=== PATIENT | female | born 1995 | race Caucasian/White ===

== ENCOUNTER 2023-08-14 22:33 | Emergency (ER) | payer SELFPAY ==
--- NOTE | 2023-08-14 22:51 | ED.GENADULT ---
HPI - General Adult General Chief complaint: Behavioral Concerns Stated complaint: homeless female found by PD. Says she is sick Time Seen by Provider: 08/14/23 22:41 Source: patient and EMS Mode of arrival: EMS Limitations: other (Uncooperative) History of Present Illness HPI narrative: Patient comes to the emergency room by ambulance. Per EMS, patient was found by police department wrapped up in a blanket curled up in a corner in the street. Patient admits that she told PD and EMS that she needed to come to the hospital because she was feeling sick. However, when I spoke with the patient, patient states that she is not feeling sick, but she feels very sleepy and it is cold outside and would like to sleep in a warm place tonight. Patient admits to polysubstance abuse. Patient denies SI or HI. Patient denies any complaints other than feeling very sleepy and wanting to sleep. Related Data Allergies Allergy/AdvReac Type Severity Reaction Status Date / Time No Known Allergies Allergy Verified 08/14/23 22:50 Review of Systems Review of Systems: Constitutional : No Weight loss, No Fever, No Chills, No Night Sweats, No Fatigue, No Malaise, somnolent ENT/Mouth : No Hearing loss, No Ear Pain, No Nasal Congestion, No Sinus Pain, No Hoarseness, No sore throat, No Rhinorrhea, No Swallowing Difficulty Eyes: No Eye Pain, No Swelling, No Redness, No Foreign Body, No Discharge, No Vision Changes Cardiovascular : No Chest Pain, No SOB, No Dyspnea on Exertion, No Orthopnea, No Edema, No Palpitations Respiratory : No Cough, No Sputum, No Wheezing, No Smoke Exposure, No Dyspnea Gastrointestinal : No Nausea, No Vomiting, No Diarrhea, No Constipation, No abdominal Pain, No Hematochezia, No Melena Genitourinary : no irregular bleeding, No Dysuria, No Urinary Frequency, No Hematuria, No Urinary Incontinence, No Urgency, No Flank Pain, No Urinary Flow Changes, No Hesitancy Musculoskeletal : No joint pain, No Myalgias, No Joint Swelling Skin : No Skin Lesions, No rash Neuro : No Weakness, No Numbness, No Paresthesias, No Loss of Consciousness, No Dizziness, No Headache Psych : No Anxiety/Panic, No Depression, No SI/HI/AH/VH, No Social Issues, Heme/Lymph: No Bruising, No Bleeding,No Lymphadenopathy Endocrine : No Polyuria, No Polydipsia, feeling cold PMFSH Past Medical History Onset Date is defined in the Problem List Problems that require an onset date and time if occurred within 24 hrs of arrival to the ED Aortic Dissection and Rupture; Neurologic impairment; Cardiopulmonary Arrest; Endotracheal Intubation; Insertion or Replacement of Mechanical Circulatory Assist Device Medical History Polysubstance abuse Physical Exam ED Vital Signs: Vital Signs - 24 hr 08/14/23 23:40 Temperature 98.2 F Pulse Rate 82 Respiratory Rate 16 Blood Pressure 130/73 Pulse Oximetry 100 Oxygen Delivery Method Room Air BMI result Body Mass Index 23.3 Const Other: Appearance: Alert. Oriented X3. Eyes: Pupils equal, round and reactive to light. ENT: Pharynx normal. Neck: Normal inspection. Neck supple. No lymph nodes noted. No crepitus CVS: Normal heart rate and rhythm. Pulses normal. Normal S1 and S2 Respiratory: No respiratory distress. Breath sounds normal. No Wheezing. No rales Abdomen: Soft and nontender. No rigidity. No distention. Skin: Skin warm and dry. Normal skin color. Normal skin turgor. Extremities: No lower extremity edema. No Lacerations. No Rash Neuro: Oriented X 3. No motor deficit. No sensory deficit. Moving all extremities. No slurred speech. CN 2 through 12 grossly intact Psych: calm, uncooperative, refusing to talk to the patient's nurse Course Course Course Narrative: -patient refusing lab work Medical Decision Making Medical Decision Making [facility] Narrative: -patient refused treatment, refused vitals, patient being belligerent and aggressive with her nurse -patient alert and oriented, not SI or HI, patient ready for discharge Differential Diagnosis Differential Diagnoses: The differential diagnosis associated with the presentation includes (Polysubstance abuse, homeless) Discharge Plan Discharge Clinical Impression: Polysubstance abuse Patient Disposition: Home, Self-Care Instructions: Polysubstance Abuse (ED) Additional Instructions: Please follow-up with your primary care physician tomorrow. If you have any worsening or new symptoms, please return to the emergency room or call 911
[2023-08-14 23:06] VITALS: BMI 23.3
--- NOTE | 2023-08-14 23:11 | PC.NURSE ---
pt refusing labs/vitals to Dr. Bill. Dr. Bill aware. pt changed over by security belongings in decon. pt denies si/hi. sleeping in stretcher resp even and unlabored.
[2023-08-14 23:40] VITALS: BP 130/73; PULSE 82; RESP 16; TEMP 36.8; O2SAT 100
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
[2023-08-15 05:43] VITALS: BP 117/64; PULSE 100; RESP 16; TEMP 37.1; O2SAT 97
== END 2023-08-15 06:39 | disposition home or self-care (01) ==
PROVIDERS: Emergency Provider Emergency Medicine
DX: F19.10 Other psychoactive substance abuse, uncomplicated (principal)
CPT/HCPCS: 99282

== ENCOUNTER 2023-08-15 10:39 | Emergency (ER) | payer SELFPAY ==
--- NOTE | 2023-08-15 10:47 | ED.GENADULT ---
HPI - General Adult General Chief complaint: ETOH/Substance Use Stated complaint: DETOXING FROM HEROIN,NOT COOPERATIVE PER EMS Time Seen by Provider: 08/15/23 10:46 Source: patient Mode of arrival: EMS Limitations: other History of Present Illness HPI narrative: Patient is a 28 yr old female with a past medical history of polysubstance abuse presenting in withdrawal from heroin. Of note, patient presented to the ER last night, refused treatment and was belligerent and aggressive with nursing staff. Today is refusing to participate in history, review of systems and physical exam. When I ask her if she is SI or HI she nods her head no. Only doing head nods. Nods her head no when I ask her if she has any pain. Related Data Previous Rx's Medication Instructions Recorded naloxone 4 mg/actuation nasal 4 mg intranasal Q2M PRN opioid 08/15/23 spray (Narcan) overdose #2 ea Allergies Allergy/AdvReac Type Severity Reaction Status Date / Time No Known Allergies Allergy Verified 08/14/23 22:50 Review of Systems Review of Systems: Constitutional : No Weight loss, No Fever, No Chills, No Fatigue, No Malaise ENT/Mouth : No sore throat, No Rhinorrhea Eyes: No Eye Pain, No Swelling, No Redness Cardiovascular : No Chest Pain, No SOB, No Dyspnea on Exertion, No Orthopnea, No Edema, No Palpitations Respiratory : No Cough, No Sputum, No Wheezing Gastrointestinal : No Nausea, No Vomiting, No Diarrhea, No Constipation, No abdominal Pain, No Hematochezia, No Melena Genitourinary : No Dysuria, No Urinary Frequency, No Hematuria, Musculoskeletal : No joint pain, No Myalgias, No Joint Swelling Skin : No Skin Lesions, No rash Neuro : No Weakness, No Numbness, No Dizziness, No Headache Psych : No Anxiety/Panic, No Depression Heme/Lymph: No Bruising, No Bleeding,No Lymphadenopathy Endocrine : No Polyuria, No Polydipsia All other systems reviewed and are negative Yes all other systems are reviewed and are negative PMFSH Past Medical History Onset Date is defined in the Problem List Problems that require an onset date and time if occurred within 24 hrs of arrival to the ED Aortic Dissection and Rupture; Neurologic impairment; Cardiopulmonary Arrest; Endotracheal Intubation; Insertion or Replacement of Mechanical Circulatory Assist Device Medical History Polysubstance abuse Social History Social History Advance Directives: No Advance Directives Information Provided: No Physical Exam ED Vital Signs: Vital Signs - 24 hr 08/15/23 10:50 Temperature 98.1 F Pulse Rate 58 Respiratory Rate 16 Blood Pressure 102/60 Pulse Oximetry 99 Oxygen Delivery Method Room Air BMI result Body Mass Index 19.7 vss Appearance: Alert.? Oriented X3.? No acute distress.? Head: Normocephalic, atraumatic, no step-offs or deformities Eyes: Pupils equal, round and reactive to light.? CVS: Normal heart rate and rhythm.? Pulses normal.? Respiratory: No respiratory distress.? Breath sounds normal.? Abdomen: Soft and nontender.? Skin: Skin warm and dry.? Normal skin color.? Normal skin turgor.? Extremities: No lower extremity edema.? No calf ttp. 5/5 strength to bilateral upper and lower extremities Back: No midline tenderness, no C-spine tenderness, full range of motion, no CVA tenderness bilaterally Neuro: Oriented X 3.? No motor deficit.? No sensory deficit. CN 2-12 intact Course Reevaluation(s) Reevaluation #1: CBC unremarkable. Chemistry with low potassium 3.1 will give oral at this time. Patient was initially seen by recovery who recommended 20 of methadone and then recommended an additional 20. Patient is slightly anxious will give Ativan at this time. Recovery was able to successfully place patient at [facility]. Patient agreeable to go when excited to go. Not suicidal or homicidal. No medical complaints. Educated patient on diagnosis and treatment plan, answered all question, patient verbalizes understanding. At this time patient will be discharged home, advised to return with new or worsening symptoms. Educated on worrisome signs and symptoms and when to return. At this time I feel comfortable discharge home. Time: 14:19 Medications Administered Discontinued Medications Generic Name Dose Route Start Last Admin Trade Name Rojas PRN Reason Stop Dose Admin Lorazepam 2 mg 08/15/23 11:35 08/15/23 12:26 Lorazepam 1 Mg Tablet PO 08/15/23 11:36 Not Given ONCE ONE Methadone HCl 20 mg 08/15/23 12:05 08/15/23 12:25 Methadone Hcl 20 Mg/2 Ml Oral.Conc PO 08/15/23 12:06 20 mg ONCE ONE Administration Medical Decision Making Medical Decision Making [facility] Narrative: 28 year old female presents w/ w/ drawl from heroin. Unwilling to answer any questions. Per nursing patient attempted to get into a detox program, however they were concerned she was overdosing, no Narcan was administered she arrived with unlabored respirations saturating well on room air, nodding to questions. Patient denies substance an ethanol to nursing. Denies any pain. Not suicidal or homicide Physical examination benign patient appears comfortable. No acute distress. VSS Likely opiate withdrawal. Versus polysubstance abuse. No reported trauma unlikely traumatic injury to head, neck, chest, abdomen or pelvis. Unlikely metabolic derangements. Patient was just seen here yesterday where she was evaluated with an unremarkable workup. Plan at this time drug screen, care vs resovery Differential Diagnosis Differential Diagnoses: The differential diagnosis associated with the presentation includes Likely opiate withdrawal. Versus polysubstance abuse. No reported trauma unlikely traumatic injury to head, neck, chest, abdomen or pelvis. Unlikely metabolic derangements. Patient was just seen here yesterday where she was evaluated with an unremarkable workup. Admission/Observation Consideration of admission/observation: Escalation of care including admission/observation considered Consult Healthcare Provider Management of the patient was discussed with: Behavioral Health Provider Lab Data [facility] Lab Attestation statement: I reviewed the patient's lab results. 08/15/23 12:27 08/15/23 12:27 Labs: Lab Results 08/15/23 Range/Units 12:27 WBC 9.2 (4.8-10.8) X10*3/uL RBC 4.78 (4.20-5.50) X10*6/uL Hgb 13.0 (12.0-16.0) g/dl Hct 38.4 (37.0-47.0) % MCV 80.3 (80.0-98.0) fL MCH 27.2 (27.0-33.0) pg MCHC 33.9 (31.0-35.0) g/dl RDW 14.4 (11.0-16.0) % Plt Count 340 (160-400) X10*3/uL MPV 10.1 (9.4-12.3) fL Immature Gran % (Auto) 0.3 (0.0-0.4) % Neut % (Auto) 71.3 (45-73) % Lymph % (Auto) 20.9 (20-40) % [place] % (Auto) 7.3 (2-11) % Eos % (Auto) 0.0 (0-4) % Baso % (Auto) 0.2 (0-2) % Lymph # (Auto) 1.9 (1.2-4.9) X10*3/uL [place] # (Auto) 0.7 (0.1-1.2) X10*3/uL Eos # (Auto) 0.0 (0.0-0.4) X10*3/uL Baso # (Auto) 0.0 (0.0-0.2) X10*3/uL Abs Immat Gran (auto) 0.03 (0.00-0.03) X10*3/uL Absolute Neuts (auto) 6.6 (2.0-8.3) x10*3/uL Absolute Nucleated RBC 0.000 (0.0-0.012) X10*3/uL Nucleated RBC % (auto) 0.0 (0.0-0.2) /100WBC Sodium 139 (135-145) mmol/L Potassium 3.1 L (3.3-5.1) mmol/L Chloride 100 (96-108) mmol/L Carbon Dioxide 25 (22-29) mmol/L Anion Gap 17 (12-20) BUN 20 H (9-16) mg/dL Creatinine 0.72 (0.5-1.4) mg/dL Estim Creat Clear Calc 91.7 Estimated GFR > 60 Random Glucose 113 (60-115) mg/dL Calcium 9.9 (8.4-10.2) mg/dL Magnesium 2.6 (1.6-2.6) mg/dL Total Bilirubin 0.4 (0.0-1.0) mg/dL AST 29 (5-31) U/L ALT 17 (0-31) U/L Alkaline Phosphatase 75 (39-117) U/L Total Protein 9.0 H (6.5-8.0) g/dL Albumin 4.3 (3.5-5.0) g/dL Beta HCG, Quant < 2 mIU/mL Independent Historian Clinical information obtained from an independent historian. History obtained from or confirmed by: EMS External Record Review External record reviewed: Inpatient record, Outpatient record and Primary care record Social Determinants Patient?s care significantly limited by Social Determinants of Health including: Other Social Determinant of Health Critical Care Time Critical Care Time Critical Care Time: Yes Total Critical Care Time: 35 Attestation: I attest to this time spent taking care of the patient, obtaining history, physical, reviewing labs, imaging, speaking to recovery Discharge Plan Discharge Clinical Impression: Opiate misuse Patient Disposition: Xfer Other Transfer Details: [facility] Instructions: Opioid Withdrawal (ED), Opioid Use Disorder (ED) Additional Instructions: Take your medications as prescribed. If you were prescribed antibiotics today, it is important that you take your medication to their entirety, do not skip any doses, do not finish them early. Follow-up with your primary care provider this week. Return to the emergency department with new or worsening symptoms. Such as fevers, chills, chest pain, shortness of breath, nausea, vomiting, dizziness, headache, vision changes, lethargy In case of emergency call 911 Prescriptions: New naloxone [Narcan] 4 mg/actuation spray,non-aerosol 4 mg intranasal Q2M PRN (Reason: opioid overdose) Qty: 2 0RF Rx Instructions: spray 1 dose into ONE nostril; alternate nostrils w each dose until help arrives Referrals: Physician,Unknown J [Primary Care Provider] - 2 days Stand Alone Forms: Work/School Release
[2023-08-15 10:50] VITALS: BP 101/62; BP 102/60; PULSE 58; PULSE 78; RESP 16; TEMP 36.7; O2SAT 98; O2SAT 99; BMI 19.7
--- NOTE | 2023-08-15 10:54 | PC.NURSE ---
upon arrival, patient changed into hospital attire with security at bedside. belongings placed in decon - only one bag containing her clothing. patient states the other belongings (backpack) she was discharged with this morning are still at [facility]. patient answering questions minimally. states she is still interested in detox at this time, easily abusable to verbal stimuli. call ronquillo within reach.
[2023-08-15] MEDS: methADONE HCl 20 MG/2 ML ORAL.CONC PO ×2 (12:25→14:40)
--- NOTE | 2023-08-15 12:26 | PC.NURSE ---
met with recovery team, medicated per the MAR. obtaining labs at this time.
[2023-08-15 12:31] LABS: MANUAL DIFF FLAG NO
[2023-08-15 12:38] LABS: Basophils Percent Auto 0.2 % (0-2); Hematocrit 38.4 % (37.0-47.0); Imm Gran Abs Auto 0.03 X10*3/uL (0.00-0.03); Imm Gran Pct Auto 0.3 % (0.0-0.4); Lymphocytes Absolute Auto 1.9 X10*3/uL (1.2-4.9); Lymphocytes Percent Auto 20.9 % (20-40); Mean Corpuscular HGB Conc 33.9 g/dl (31.0-35.0); Mean Corpuscular Hemoglobin 27.2 pg (27.0-33.0); Mean Corpuscular Volume 80.3 fL (80.0-98.0); Mean Platelet Volume 10.1 fL (9.4-12.3); Monocytes Absolute Auto 0.7 X10*3/uL (0.1-1.2); Monocytes Percent Auto 7.3 % (2-11); Neutrophils Absolute Auto 6.6 x10*3/uL (2.0-8.3); Neutrophils Percent Auto 71.3 % (45-73); Platelet Count 340 X10*3/uL (160-400); Red Blood Count 4.78 X10*6/uL (4.20-5.50); Red Cell Distribution Width 14.4 % (11.0-16.0); White Blood Count 9.2 X10*3/uL (4.8-10.8)
[2023-08-15 12:57] LABS: Alanine Aminotransferase 17 U/L (0-31); Albumin Level 4.3 g/dL (3.5-5.0); Alkaline Phosphatase 75 U/L (39-117); Anion Gap 17 (12-20); Aspartate Amino Transferase 29 U/L (5-31); Bilirubin Total 0.4 mg/dL (0.0-1.0); Blood Urea Nitrogen 20 mg/dL (9-16); Calcium 9.9 mg/dL (8.4-10.2); Carbon Dioxide 25 mmol/L (22-29); Chloride 100 mmol/L (96-108); Creatinine Clr Calc Pharmacy 91.7; Estimated Glomerular Filt Rate > 60; Glucose Random 113 mg/dL (60-115); Magnesium 2.6 mg/dL (1.6-2.6); Potassium 3.1 mmol/L (3.3-5.1); Sodium 139 mmol/L (135-145)
[2023-08-15 13:05] LABS: HCG Quantitative < 2 mIU/mL
--- NOTE | 2023-08-15 13:51 | MHC.RECOVRN ---
Met with pt in ED6 after pt requesting ATS. Pt had presented to the ED after being discharged this morning and returning after EMS was called for ?overdose, no Narcan was administered. Pt laying in bed, eyes closed, wakes to voice, difficult to engage in conversation, guarded. Pt reports heroin/fentanyl use, 10 bundles daily, IV. Pt reports current withdrawal symptoms including diaphoresis, upset stomach, body aches. Pt reports hx methadone, had been on 190 mg, unknown which OTP. Pt is interested in ATS, is agreeable to any facility.
--- NOTE | 2023-08-15 14:25 | MHC.RECOVRN ---
Pt does not currently have [employer] insurance which creates a barrier to ATS. Discussed other options with pt, pt would like to continue with methadone and is interested in going to a penitentiary. Placement has been secured at [facility], pt to be transported via Lyft. [facility] will assist pt with health insurance and connection to [facility]. Pt continues to experience withdrawal including hot/cold sweats and loose stool. Plan to administer additional 20 mg methadone.
[2023-08-15] MEDS: Potassium Chloride ER 20 MEQ TAB.ER.PRT PO (14:40)
== END 2023-08-15 16:01 | disposition other institution (70) ==
PROVIDERS: Physician Assistant; Emergency Provider Emergency Medicine
DX: F11.23 Opioid dependence with withdrawal (principal); Z79.899 Other long term (current) drug therapy
CPT/HCPCS: 36415; 80053; 83735; 84702; 85025; 99283; 99284

== ENCOUNTER 2023-11-28 23:13 | Emergency (ER) | payer OTHER, SELFPAY ==
--- NOTE | 2023-11-28 23:29 | ED_ITS ---
HPI - General Adult General Chief complaint: General Medical Stated complaint: drug use Time Seen by Provider: 11/28/23 23:28 History of Present Illness HPI narrative: The patient is a 28-year-old female with a history of substance use problems. Apparently she seemed quite upset this evening and an ambulance was called. She was in the parking lot of a dollar store. She seemed agitated. As far as I can tell I believe a bystander called 911. Police arrived and were concerned that she seemed hyperverbal. Please convinced her to come to the emergency room for evaluation. She says she had not wanted to come to the hospital. She says that she has had trouble sleeping recently. She says she was recently discharged from a hospital where she was treated under a section 35. She says that she has not done anything to harm herself. She says that she has no plans to harm herself. She says that she would like to be discharged with a plan to go to a friend's house where she can get some sleep. The patient denies any thoughts of suicidality or self-harm or any plans to inj ure anyone else. Related Data Previous Rx's ?Medication ?Instructions ?Recorded naloxone 4 mg/actuation nasal 4 mg intranasal Q2M PRN opioid 08/15/23 spray (Narcan) overdose #2 ea Allergies Allergy/AdvReac Type Severity Reaction Status Date / Time No Known Allergies Allergy Verified 11/28/23 23:48 Review of Systems Review of Systems: Yes all other systems are reviewed and are negative [facility] Past Medical History Medical History Polysubstance abuse Social History Social History Advance Directives: No Advance Directives Information Provided: Yes Do you have a plan to hurt others: No Plan Physical Exam ED Vital Signs: Vital Signs - 24 hr 11/28/23 23:48 11/28/23 23:51 Temperature 98.1 F 98.1 F Pulse Rate 88 88 Respiratory Rate 16 16 Blood Pressure 109/71 109/71 Pulse Oximetry 100 100 Oxygen Delivery Method Room Air Room Air BMI result Body Mass Index 21.5 Const Other: The patient is an unkempt, somewhat chronically ill-appearing 28-year-old who was awake and alert. She was somewhat histrionic but could be engaged. She did not seem in obvious distress. HENMT Other: The patient has poor dentition. Mucous membranes are moist. The face is symmetrical. No signs of trauma. Eyes Other: Pupils are round equal, conjunctivae are clear, extraocular movements intact, no nystagmus. Neck Other: No JVD, moving her neck easily, no swelling. Resp Effort & Inspection: normal respiratory effort Auscultation: clear to auscultation bilaterally Cardio Rate: regular rate Rhythm: regular rhythm Heart sounds: S1 normal heart sound present and S2 normal heart sound present GI Other: Abdomen is flat and soft Skin Other: Skin is pale and dry. She had some scabs on her lower legs for which she requested some Band-Aids. Neuro Other: The patient was awake and alert. She had some mildly pressured speech. She seems oriented. Face is symmetrical. Eye movements are normal. Pupils are unremarkable. Speech is clear. She moves her extremities symmetrically. Her gait was steady. Extrem Other: No peripheral edema. Medical Decision Making Medical Decision Making MDM Narrative: The patient is a 28-year-old who has a history of significant substance use problems who was apparently behaving in his somewhat agitated manner in public. This prompted police to convince her to come to the hospital. She does not wish to be here. She denies any suicidality or homicidality. She denies having done anything to harm herself. She denies feeling ill. She admits to feeling agitated because she has not slept much recently. She says that if she is discharged she will walk about 10 minutes to a friend's house where she can get some sleep. She is requesting discharge. Vital signs are unremarkable. She seems steady on her feet. I do not feel there are grounds to hold her against her will. She was discharged. Discharge Plan Discharge Clinical Impression: Difficulty sleeping Patient Disposition: Home, Self-Care Additional Instructions: Please go to your friend's house to try to get some rest tonight. Please try to follow up soon with your new regular doctor at the [facility]. Please try to avoid using any drugs which might be dangerous. Return to the emergency room if you feel significantly worse. Prescriptions: No Action naloxone [Narcan] 4 mg/actuation spray,non-aerosol 4 mg intranasal Q2M PRN (Reason: opioid overdose) Qty: 2 0RF Rx Instructions: spray 1 dose into ONE nostril; alternate nostrils w each dose until help arrives Referrals: [facility] [Provider Group] (Recently treated under a section 35) Interventions: ED Discharge Assessment Last Done: 11/28/23 23:51 Discharge Date/Time: 11/28/23 23:54 Print Language: Upper Sorbian
[2023-11-28 23:48] VITALS: BP 109/71; PULSE 88; RESP 16; TEMP 36.7; O2SAT 100; BMI 21.5
[2023-11-28 23:51] VITALS: BP 109/71; PULSE 88; RESP 16; TEMP 36.7; O2SAT 100
== END 2023-11-28 23:54 | disposition home or self-care (01) ==
PROVIDERS: Emergency Provider Emergency Medicine
DX: G47.00 Insomnia, unspecified (principal)
CPT/HCPCS: 99282

== ENCOUNTER 2024-03-05 00:45 | Emergency (ER) | payer SELFPAY ==
[2024-03-05 01:00] VITALS: BP 102/55; PULSE 79; RESP 16; O2SAT 96
[2024-03-05 01:03] VITALS: BP 142/100; PULSE 85; O2SAT 98; BMI 19.5
--- NOTE | 2024-03-05 01:23 | ED_ITS ---
HPI - General Adult General Chief complaint: ETOH/Substance Use Stated complaint: seeking detox Time Seen by Provider: 03/05/24 01:06 Source: patient and EMS Mode of arrival: EMS Limitations: no limitations History of Present Illness ED Provider: Dr. Engel HPI narrative: Patient brought in by EMS for withdrawal from heroine, fentanyl, and cocaine. She is homeless. She last used 12 hours ago Onset (ago): hour(s) Related Data Previous Rx's ?Medication ?Instructions ?Recorded naloxone 4 mg/actuation nasal 4 mg intranasal Q2M PRN opioid 08/15/23 spray (Narcan) overdose #2 ea Allergies Allergy/AdvReac Type Severity Reaction Status Date / Time No Known Allergies Allergy Verified 03/05/24 01:06 Review of Systems Review of Systems: Yes all other systems are reviewed and are negative Neurologic: Denies Sensory deficit (Neuro) PMFSH Past Medical History Medical History Polysubstance abuse Social History Social History Advance Directives: No Advance Directives Information Provided: Yes Do you have a plan to hurt others: No Plan Patient : No Physical Exam ED Vital Signs: Vital Signs - 24 hr 03/05/24 01:00 03/05/24 05:32 Temperature 98.4 F Pulse Rate 79 80 Respiratory Rate 16 16 Blood Pressure 102/55 L 107/60 Pulse Oximetry 96 97 Oxygen Delivery Method Room Air Room Air BMI result Body Mass Index 19.5 Const Other: female unkept looking older than stated age Nutritional Appearance: malnourished Orientation/consciousness: oriented to person and patient oriented x3 Limitations: no limitations HENMT Head: Yes normal to inspection Ears: external ears normal General nose exam: Normal external nose present Mouth: Normal oral and palatal mucosa present and oropharynx normal Throat: Yes posterior oropharynx normal Eyes General: appearance normal, both eyes and all related structures Neck Neck: Yes normal visual inspection Chest Chest palpation & inspection: normal inspection of the chest Resp Auscultation: clear to auscultation bilaterally Cardio Jugular venous distension: no JVD Rate: regular rate Rhythm: regular rhythm Heart sounds: S1 normal heart sound present and S2 normal heart sound present GI Inspection: Yes normal to inspection Palpation (GI): Soft to palpation, nontender and No hepatosplenomegaly present Auscultation: normal bowel sounds General: Yes no CVA tenderness Back/Spine/Pelvis Back: no CVA tenderness Skin Other: track henson and scarring Neuro General: oriented to person and patient oriented x3 Cranial nerves: Yes CN's II-XII intact bilaterally Motor exam (neuro): 5/5 motor strength present throughout Sensory Exam: No Sensory deficit (Neuro) Extrem General: Yes normal to inspection Psych Appearance: grossly normal Course Reevaluation(s) Reevaluation #1: Physician observation starting now as the patient needs time to see if she will improve while she is waiting to be evaluated by the care team Time: 06:23 Medications Administered Discontinued Medications Generic Name Dose Route Start Last Admin Trade Name Freq PRN Reason Stop Dose Admin Clonidine HCl 0.1 mg 03/05/24 01:24 03/05/24 01:35 Clonidine Hcl 0.1 Mg Tablet PO 03/05/24 01:25 0.1 mg ONCE ONE Administration Protocol Medical Decision Making Differential Diagnosis Differential Diagnoses: The differential diagnosis associated with the presentation includes (opiate dependency, polysubstance abuse) Admission/Observation Consideration of admission/observation: Escalation of care including admission/observation considered (upon arrival patient considered for admission) Independent Historian Clinical information obtained from an independent historian. History obtained from or confirmed by: EMS Discharge Plan Discharge Clinical Impression: Polysubstance abuse, Opiate dependence Patient Disposition: Still a Patient Prescriptions: No Action naloxone [Narcan] 4 mg/actuation spray,non-aerosol 4 mg intranasal Q2M PRN (Reason: opioid overdose) Qty: 2 0RF Rx Instructions: spray 1 dose into ONE nostril; alternate nostrils w each dose until help arrives Print Language: [place]
[2024-03-05] MEDS: cloNIDine HCL 0.1 MG TABLET PO (01:35)
--- NOTE | 2024-03-05 03:49 | PC.NURSE ---
delay in labs due to to multiple attempts to draw
--- NOTE | 2024-03-05 04:58 | MHC.EDTECH ---
Difficult draw, Multiple techs tried unable to succeed. RN and DR duff
[2024-03-05 05:32] VITALS: BP 107/60; PULSE 80; RESP 16; TEMP 36.9; O2SAT 97
[2024-03-05 08:09] LABS: MANUAL DIFF FLAG NO
[2024-03-05 08:10] LABS: Basophils Percent Auto 0.2 % (0-2); Eosinophils Percent Auto 0.7 % (0-4); Hematocrit 32.1 % (37.0-47.0); Lymphocytes Absolute Auto 1.3 X10*3/uL (1.2-4.9); Lymphocytes Percent Auto 29.4 % (20-40); Mean Corpuscular HGB Conc 34.3 g/dl (31.0-35.0); Mean Corpuscular Volume 81.7 fL (80.0-98.0); Mean Platelet Volume 10.4 fL (9.4-12.3); Monocytes Absolute Auto 0.5 X10*3/uL (0.1-1.2); Monocytes Percent Auto 10.2 % (2-11); Neutrophils Absolute Auto 2.7 x10*3/uL (2.0-8.3); Neutrophils Percent Auto 59.5 % (45-73); Platelet Count 171 X10*3/uL (160-400); Red Blood Count 3.93 X10*6/uL (4.20-5.50); Red Cell Distribution Width 13.2 % (11.0-16.0); White Blood Count 4.5 X10*3/uL (4.8-10.8)
[2024-03-05 08:30] LABS: Anion Gap 9 (12-20); Blood Urea Nitrogen 10 mg/dL (9-16); Calcium 9.1 mg/dL (8.4-10.2); Carbon Dioxide 27 mmol/L (22-29); Chloride 105 mmol/L (96-108); Creatinine Clr Calc Pharmacy 107.5; Estimated Glomerular Filt Rate > 60; Glucose Random 101 mg/dL (60-115); Potassium 2.9 mmol/L (3.3-5.1); Sodium 138 mmol/L (135-145)
[2024-03-05] MEDS: Potassium Chloride ER 20 MEQ TAB.ER.PRT PO (08:52)
[2024-03-05] MEDS: Ondansetron ODT 4 MG TAB.RAPDIS TRANSLINGU (08:53)
--- NOTE | 2024-03-05 09:14 | MHC.RECOVRN ---
Met with pt in [id number] after consult placed to CARE Team for withdrawal. Pt laying in bed, awake, alert, easily engages in conversation, appears uncomfortable. Pt reports heroin/fentanyl use, 2 bundles daily, IV, as well as cocaine, INH, 1 gram daily. Pt reports she had been on methadone, unsure of how long ago, 120 mg. Pt would like to restart methadone and be connected to [facility]. Pt currently reporting withdrawal symptoms including restlessness, nausea, feeling hot/cold, diaphoresis, has dilated pupils. Pt is not currently interested in other recovery supports/resources. Denies other questions for t/w. Discussed with provider, plan to administer 40 mg methadone. N referral sent.
[2024-03-05] MEDS: methADONE HCl 20 MG/2 ML ORAL.CONC 40 MG PO (09:23)
[2024-03-05 09:42] VITALS: BP 91/54; PULSE 66; RESP 14; TEMP 37.2; O2SAT 100
== END 2024-03-05 09:44 | disposition home or self-care (01) ==
PROVIDERS: Emergency Provider Emergency Medicine
DX: F19.10 Other psychoactive substance abuse, uncomplicated (principal); F11.20 Opioid dependence, uncomplicated; Z59.00 Homelessness unspecified
CPT/HCPCS: 36415; 80048; 85025; 99284

== ENCOUNTER 2025-02-23 13:17 | Emergency (ER) | payer SELFPAY ==
--- NOTE | ~2025-02-23 | XR_ITS ---
EXAMINATION: XR CHEST CLINICAL INFORMATION: overdose, given 12mg narcan COMPARISON: None available. TECHNIQUE: AP view of the chest was obtained. FINDINGS: Mild patient rotation to the right. Mildly elevated right hemidiaphragm. The cardiac, hilar, and mediastinal contours are normal. The lungs are clear bilaterally. No pneumothorax or effusion. No focal osseous or soft tissue abnormality. XR/XR chest 1V IMPRESSION: No active pulmonary disease. Electronically signed by: Gentry Taylor MD 02/23/2025 02:11 PM EDT
[2025-02-23 13:30] VITALS: BP 113/69; PULSE 63; RESP 14; TEMP 36.6; O2SAT 99; BMI 18.0
--- NOTE | 2025-02-23 13:30 | ECG_ITS ---
Test Reason : OD Blood Pressure : */* mmHG Vent. Rate : 66 BPM Atrial Rate : 66 BPM P-R Int : 178 ms QRS Dur : 82 ms QT Int : 412 ms P-R-T Axes : 73 88 68 degrees QTcB Int : 431 ms Normal sinus rhythm Normal ECG No previous ECGs available Referred By: Sarbjit Tracey Electronically Signed By: ROYER MALDONADO MD
--- NOTE | 2025-02-23 13:38 | ED.OVERDOSE ---
HPI - Overdose General Chief Complaint: Overdose Stated Complaint: OD,12 MG NARCAN PER EMS Time Seen by Provider: 02/23/25 13:23 Source: EMS and RN notes reviewed Mode of arrival: EMS Limitations: no limitations History of Present Illness ED Provider: Alexy Schaffer PA-C HPI Narrative: 29-year-old female with medical history of opiate use disorder, presents to the ED today by EMS after overdose. Patient is somewhat reluctant to talk about her history. States she does not know what happened today. EMS states patient was found down was given 12 mg Narcan intranasally prior to arrival. Patient states she uses approximately a bundle of IV heroin a day, this is an accidental overdose. Patient states she has no physical complaints, does not want consult with care team for help with addiction at this time. Related Data Previous Rx's ?Medication ?Instructions ?Recorded naloxone 4 mg/actuation nasal 4 mg intranasal Q2M PRN opioid 08/15/23 spray (Narcan) overdose #2 ea Allergies Allergy/AdvReac Type Severity Reaction Status Date / Time diphenhydramine Allergy Anaphylaxis Verified 02/23/25 13:31 Review of Systems Review of Systems: CONST: Negative for fever, body aches and chills. HENT: Negative for neck pain/stiffness, headache, congestion, sore throat, swelling. EYES: Negative for discharge/pain or vision changes. RESP: Negative for cough/hemoptysis and shortness of breath. CV: Negative chest pain, difficulty breathing, palpitations. ABD: Negative pain, nausea, vomiting. : Negative increase frequency, dysuria, blood in urine or stool. MUSC: Negative for muscle aches, edema. SKIN: Negative rash, lesions/sores. NEURO: Negative headache, dizziness, weakness. Yes all other systems are reviewed and are negative [facility] Past Medical History Attestation statement: The following information was validated with the patient. Source: old records reviewed and nursing notes reviewed Medical History Polysubstance abuse Social History Social History Unable to assess alcohol history related to: Refusing to respond Use of substances other than those prescribed or required for medical reasons: Yes Substance Use Type: Other and Tranquilizers Substance Use Type Other:: fentanyl Advance Directives: No Advance Directives Information Provided: No Do you have a plan to hurt others: No Plan Physical Exam Vital Signs: Vital Signs: Last Vital Signs Temp 98 F 02/23/25 13:30 Pulse 78 02/23/25 14:22 Resp 14 02/23/25 13:30 BP 90/40 L 02/23/25 15:42 Pulse Ox 99 02/23/25 13:30 O2 Del Method Room Air 02/23/25 15:42 BMI result Body Mass Index 18.0 GENERAL APPEARANCE: ?AxOx4, lethargic appearing, but responds to vocal commands HEENT: ?NC, AT. MMM. EOMI, clear conjunctiva, oropharynx clear. NECK: ?Supple without lymphadenopathy.? No stiffness or restricted ROM. HEART:?normal rate and regular rhythm, normal S1/S1, no m/r/g LUNGS:? CTAB, moving air well. No crackles or wheezes are heard. ABDOMEN: ?Soft, nontender, nondistended with good bowel sounds heard. BACK: No CVAT, no obvious deformity. EXTREMITIES: ?Without cyanosis, clubbing or edema. NEUROLOGICAL: ?Grossly nonfocal. Alert and oriented, moving all 4 extremities. Skin: ?Warm and dry without any rash. Medications Administered Discontinued Medications Generic Name Dose Route Start Last Admin Trade Name Esaq PRN Reason Stop Dose Admin Lactated Ringer's 1,000 mls @ 999 mls/hr 02/23/25 13:30 02/23/25 17:00 Lr IV 02/23/25 14:30 Infused .Q1H1M ONE Infusion Ondansetron HCl 4 mg 02/23/25 16:43 02/23/25 17:17 Ondansetron Hcl 4 Mg/2 Ml Vial IVPUSH 02/23/25 16:44 Not Given ONCE ONE Ondansetron HCl 4 mg 02/23/25 16:58 02/23/25 17:02 Ondansetron Odt 4 Mg Tab.Rapdis TRANSLINGU 02/23/25 16:59 4 mg ONCE ONE Administration Medical Decision Making Medical Decision Making MDM Narrative: 29-year-old female with medical history of opiate use disorder, presents to the ED today by EMS after overdose. Patient is somewhat reluctant to talk about her history. States she does not know what happened today. EMS states patient was found down was given 12 mg Narcan intranasally prior to arrival. Patient states she uses approximately a bundle of heroin a day, this is an accidental overdose. Patient states she has no physical complaints, does not want consult with care team for help with addiction at this time. VSS, BP 113/69, pulse rate 63, respiratory rate 14, O2 saturation 99% on room air. Obtaining labs, UA, SHAFFER, and chest x-ray for evaluation of pulmonary edema due to 12 mg nasal Narcan. EKG reveals normal sinus rhythm, no ST elevation/depression, T-wave abnormalities. Course 14:32- patient refusing labs. CXR without pulmonary edema or acute cardiopulmonary processes. Patient does not want consult with CARE team. We will observe patient and department and plan for later discharge. 18:15- per nursing, patient just ripped out IV, states ?I want to get out of here , patient with nausea, was given sublingual Zofran, patient is still with episode of emesis. Patient does not want any further medications, wants to leave, vital signs stable, BP 110/60, pulse rate 67 beats per minute, respiratory rate 15 breaths per minute, temp 98?, O2 saturation 98% on room air. Differential Diagnosis Differential Diagnoses: The differential diagnosis associated with the presentation includes Opiate intoxication Opioid withdrawal Dysrhythmia Pulmonary edema Admission/Observation Consideration of admission/observation: Escalation of care including admission/observation considered Lab Data MDM Lab Attestation statement: I reviewed the patient's lab results. Independent Interpretation I performed an independent interpretation of an: EKG and Plain X-Ray Interpretation: I independently interpreted the EKG I independently interpreted the chest x-ray without pulmonary edema, pulmonary effusion, cardiomegaly, or infiltrates, I agree with the radiologist's impression Radiology Impression Discussion of test interpretation with radiology: I have reviewed the radiologist's reading. Radiologist Impression: CXR FINDINGS: Mild patient rotation to the right. Mildly elevated right hemidiaphragm. The cardiac, hilar, and mediastinal contours are normal. The lungs are clear bilaterally. No pneumothorax or effusion. No focal osseous or soft tissue abnormality. XR/XR chest 1V IMPRESSION: No active pulmonary disease. Electronically signed by: Gentry Taylor MD 02/23/2025 02:11 PM EDT Dictated By: Gentry Taylor MD Signed By: <Electronically signed by Gentry Taylor MD in OV> 02/23/25 1417 External Record Review External record reviewed: Inpatient record, Office record and Outpatient record Chronic Conditions Patient?s care impacted by: Other (Opiate use disorder) Discharge Plan Discharge Clinical Impression: Drug overdose Patient Disposition: Home, Self-Care Instructions: Adult Overdose (ED) Additional Instructions: You were evaluated in the ED today due to drug overdose, and 12 mg of nasal Narcan given to you. You declined blood work today. Your EKG showed a normal sinus rhythm, without arrhythmia. Your chest x-ray did not show any evidence of pulmonary edema. Your vital signs were stable.Overdose You were seen in our Emergency Department for an overdose today. You received narcan in order to reverse the effects of overdose. Narcan only lasts about 45 min to 1 hour in the system. You may have been given narcan to take home with you today, please keep it near you if you are going to use again, so others can use it if needed.? The number one risk for fatal overdose is using alone? [employer] is a 18/02 hotline where you can be on the phone with someone while you use, and they can call for help if they suspect an overdose: [phone] Things to look out for when you leave include severe vomiting or diarrhea, headaches, muscle cramps, fever, coughing, chest pain, or if you feel so short of breath you cannot walk to the bathroom. Please seek care and return any time for worsening symptoms.? You may have been provided with safer injection?items, please take time to take care of YOU and your health. Use new supplies whenever possible to lessen the chances of infections and other illnesses.? If you need more supplies, please go [facility],? [address] [place], [place] you can call or text to coordinate delivery of safer supplies. If you decide you want to stop or cut down on how much you?re using, please call the numbers on the list provided to you or you can come to our outpatient Addiction Treatment office [facility] (M-F 9am-5p) [address], [address] [place], [place]. [phone] Prescriptions: No Action naloxone [Narcan] 4 mg/actuation spray,non-aerosol 4 mg intranasal Q2M PRN (Reason: opioid overdose) Qty: 2 0RF Rx Instructions: spray 1 dose into ONE nostril; alternate nostrils w each dose until help arrives Print Language: Unable To Collect
[2025-02-23] MEDS: Lactated Ringers 1,000 ML 999 ML IV (13:47)
--- NOTE | 2025-02-23 14:00 | MHC.EDTECH ---
pt refusing labwork. Provider Sarbjit duff.
[2025-02-23 14:22] VITALS: BP 92/49; PULSE 78
[2025-02-23 15:42] VITALS: BP 90/40
--- OUTSIDE RECORDS SUMMARY | 2025-02-23 16:14 | XMS_ITS | Clinical Summary ---
Author Organization [facility] it Address [address] [place] [address] Care Team Providers Care City Comptroller Name Role Phone Unavailable Primary Care Provider Unavailabl e Social History Tobacco Use Types Packs/Day Years Used Date Smoking Tobacco: Never Assessed Comments Unknown Sex and Gender Information Value Date Recorded Sex Assigned at Not on file Legal Sex Female 1:39 PM EDT Gender Identity Not on file Sexual Orientation Not on file Plan of Treatment Health Maintenance Due Date Last Done Comments DTaP,Tdap,and Td Vaccines (1 - Tdap) 2013 Hepatitis B Vaccines (1 of 3 - 19+ 3-dose series) 2013 Cervical Cancer Screening: P ap Smear 2015 HIV Screening 02/28/2024 Hepatitis C Screening 02/28/2024 Social Influencers of Health Screening 02/28/2024 COVID-19 Vaccine (1 - 2023-2 5 season) 2024 Depression Screening 07/29/2024 Influenza Vaccine (#1) 2025 HIB Vaccines Aged Out No longer eligi ble based on patient's age to complete this topic HPV Vaccines Aged Out No longer eligi ble based on patient's age to complete this topic Hepatitis A Vaccines Aged Out No long er eligible based on patient's age to complete this topic IPV Vaccines Aged Out No longer eligi ble based on patient's age to complete this topic MMR Vaccines Aged Out No longer eligi ble based on patient's age to complete this topic Meningococcal ACWY Vaccine Aged Out N o longer eligible based on patient's age to complete this topic Meningococcal B Vaccine Aged Out No l onger eligible based on patient's age to complete this topic Pneumococcal Vaccine: Pediat rics (0 to 5 Years) and At-Risk Patients (6 to 49 Years) Aged Out No longer eligible b ased on patient's age to complete this topic RSV Immunization Patients Un amanda 20 months Aged Out No longer eligible b ased on patient's age to complete this topic Varicella Vaccines Aged Out No longer eligible based on patient's age to complete this topic
--- NOTE | 2025-02-23 16:17 | PC.NURSE ---
belongings in [facility] 3
--- NOTE | 2025-02-23 17:00 | PC.NURSE ---
Pt ripped out IV and continues to rip off monitor. Pt vomited over the side of the bed multiple times despite having emesis bag. PA aware, awaiting PO zofran order.
[2025-02-23 17:45] VITALS: BP 110/60; PULSE 67; RESP 15; O2SAT 98
--- NOTE | 2025-02-23 18:14 | PC.NURSE ---
Addendum entered by Mayi Varma RN 02/23/25 18:18: Upon attempting to start another IV for hydration and nausea medication, pt refusing IV and states how long do I have to stay here, I want to leave . Pt aaox4, still reporting nausea, and vomited again over the side of the bed despite having a new emesis bag within reach. Pt informed of risks of leaving without completing medical treatment, pt still wishes to leave. PA aware. Original Note: Upon attempting to start another IV for hydration and nausea medication, pt refusing IV and states how long do I have to stay here, I want to leave . Pt aaox4, still reporting nausea. Pt informed of risks of leaving without completing medical treatment, pt still wishes to leave. PA aware.
[2025-02-23 18:43] VITALS: BP 110/60; PULSE 67; RESP 15; TEMP 36.6; O2SAT 98
== END 2025-02-23 18:43 | disposition home or self-care (01) ==
PROVIDERS: Emergency Provider Emergency Medicine
DX: T40.1X1A Poisoning by heroin, accidental (unintentional), initial encounter (principal); R40.4 Transient alteration of awareness; Y92.9 Unspecified place or not applicable; F19.10 Other psychoactive substance abuse, uncomplicated
CPT/HCPCS: 71045; 93005; 96360; 96361; 99284; 99285; J2405; J7120

== ENCOUNTER → 2025-02-23 13:30 | Outpatient (BNV) | payer SELFPAY | PROVIDERS: Emergency Provider Emergency Medicine; Visit Provider Internal Medicine Cardiovascular Disease | DX: T40.1X2A Poisoning by heroin, intentional self-harm, initial encounter (principal) | CPT/HCPCS: 93010 ==

== ENCOUNTER → 2025-02-23 13:31 | Outpatient (BNV) | payer SELFPAY | PROVIDERS: Emergency Provider Emergency Medicine; Visit Provider Radiology Diagnostic Radiology | DX: T40.2X1A Poisoning by other opioids, accidental (unintentional), initial encounter (principal) | CPT/HCPCS: 71045 ==

== ENCOUNTER 2025-03-08 18:06 | Emergency (ER) | payer SELFPAY ==
[2025-03-08 18:26] VITALS: BP 102/62; BP 105/73; PULSE 58; PULSE 59; RESP 14; TEMP 36.3; O2SAT 100; O2SAT 98; BMI 16.6
[2025-03-08 18:35] LABS: Glucose, Whole Blood 150 mg/dL (60-115)
[2025-03-08 20:00] LABS: Glucose, Whole Blood 122 mg/dL (60-115)
[2025-03-08 20:11] VITALS: BP 90/59; PULSE 56; RESP 14; TEMP 36.6; O2SAT 96
--- NOTE | 2025-03-08 20:40 | ED.OVERDOSE ---
HPI - Overdose General Chief Complaint: Overdose Stated Complaint: OD, 8MG NARCAN GIVEN Time Seen by Provider: 03/08/25 20:34 Source: EMS Mode of arrival: EMS Limitations: no limitations History of Present Illness ED Provider: HPI Narrative: Patient's history of substance abuse use heroin and cocaine prior to arrival was found in [place] drowsy received 8 mg of Narcan prior to arrival stable vitals on arrival saturating 98% at room no signs of injury or trauma Related Data Previous Rx's ?Medication ?Instructions ?Recorded naloxone 4 mg/actuation nasal 4 mg intranasal Q2M PRN opioid 08/15/23 spray (Narcan) overdose #2 ea Allergies Allergy/AdvReac Type Severity Reaction Status Date / Time diphenhydramine Allergy Anaphylaxis Verified 03/08/25 18:32 Review of Systems Review of Systems: Yes Unobtainable due to mental status PMFSH Past Medical History Medical History Polysubstance abuse Social History Social History Unable to assess alcohol history related to: Refusing to respond Substance Use Type: Other and Tranquilizers Advance Directives: No Advance Directives Information Provided: No Physical Exam Vital Signs: Vital Signs: Last Vital Signs Temp 98.4 F 03/08/25 22:08 Pulse 60 03/09/25 00:20 Resp 20 03/09/25 00:20 BP 96/61 03/09/25 00:20 Pulse Ox 99 03/09/25 00:20 O2 Del Method Room Air 03/09/25 00:20 BMI result Body Mass Index 16.6 Appearance: Lethargic but easily arousable. No acute distress. Eyes: PERRLA, No Nystagmus ENT: Pharynx normal. Oral Mucosa moist Neck: Normal inspection. Neck supple. CVS: Normal heart rate and rhythm. Pulses normal. Respiratory: No respiratory distress. Equal air entry bilateral, no wheezing/rales/rhonchi Abdomen: Soft and nontender. Bowel sounds are present, no mass palpable, no CVA tenderness Skin: Skin warm and dry. Normal skin color. Normal skin turgor. Extremities: No lower extremity edema. No calf tenderness Neuro: Oriented X 3. No motor deficit. No sensory deficit.No cerebellar signs , cranial nerves II-XII intact Medical Decision Making Medical Decision Making [facility] Narrative: Patient with opiate abuse . responded to Narcan patient does not want to go to detox will discharge patient home stable vitals Lab Data [facility] Lab Attestation statement: I reviewed the patient's lab results. Labs: Lab Results 03/08/25 03/08/25 Range/Units 18:32 19:56 POC Glucose 150 H 122 H (60-115) mg/dL Discharge Plan Discharge Clinical Impression: Drug overdose Patient Disposition: Home, Self-Care Instructions: Adult Overdose (ED) Additional Instructions: Stop using drugs and follow up with detox Prescriptions: No Action naloxone [Narcan] 4 mg/actuation spray,non-aerosol 4 mg intranasal Q2M PRN (Reason: opioid overdose) Qty: 2 0RF Rx Instructions: spray 1 dose into ONE nostril; alternate nostrils w each dose until help arrives Print Language: Unable To Collect
[2025-03-08 22:08] VITALS: BP 106/63; PULSE 62; RESP 18; TEMP 36.9; O2SAT 100
[2025-03-09 00:20] VITALS: BP 96/61; PULSE 60; RESP 20; O2SAT 99
--- NOTE | 2025-03-09 01:52 | PC.NURSE ---
Pt vomiting over the side of the bed. Denies complaints, resting with eyes closed. Plan for DC this morning when able.
[2025-03-09 02:35] VITALS: BP 98/56; PULSE 54; RESP 22; O2SAT 99
--- NOTE | 2025-03-09 02:45 | PC.NURSE ---
Pt vomiting over the side of the bed, refusing to use an emesis bag. Plan to medicate with Zofran.
--- NOTE | 2025-03-09 02:48 | PC.NURSE ---
Pt medicated with Zofran. Plan to DC at 0400.
[2025-03-09 03:38] VITALS: BP 105/64; PULSE 53; RESP 20; O2SAT 100
--- NOTE | 2025-03-09 04:40 | PC.NURSE ---
patient continues to rest quietly w/ eyes closed. one previous episode of vomiting. patient denies complaints. attempted to see if patient was ready for discharge, patient stating she is not yet ready and would like to sleep.
[2025-03-09 09:37] VITALS: BP 105/64; PULSE 53; RESP 20; TEMP 36.2; O2SAT 100
== END 2025-03-09 06:15 | disposition home or self-care (01) ==
PROVIDERS: Emergency Provider Internal Medicine
DX: T40.604A Poisoning by unspecified narcotics, undetermined, initial encounter (principal); R40.0 Somnolence; Y92.89 Other specified places as the place of occurrence of the external cause
CPT/HCPCS: 82947; 99283; 99284